=== PATIENT | male | born 1975 | race Caucasian/White ===

== ENCOUNTER 2017-03-28 00:29 | Emergency (ER) | payer OTHER ==
[2017-03-28 01:04] VITALS: BP 113/67; PULSE 66; TEMP 97.5; BMI 33.7
--- NOTE | 2017-03-28 01:36 | PDOC ---
History of Present Illness - General Chief Complaint: Pain, Acute Stated Complaint: ABD PAIN Time Seen by Provider: 03/28/17 00:58 History Source: Patient Exam Limitations: No Limitations - History of Present Illness Travel History: No Initial Comments: 03/28/17 01:47 42-year-old male with a history of renal colic presents to the emergency department with his daughter complaining of right sided flank pain radiating to the groin area 6 hours. 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 Patient denies any chest pain, shortness of breath, urinary symptoms: Frequency/urgency/hesitancy, hematuria, bladder or bowel dysfunction. Patient states symptoms feel similar to his renal colic. Timing/Duration: reports: intermittent Quality: reports: moderate Abdominal Pain Onset Location: reports: flank Past History - Past Medical History Allergies/Adverse Reactions: Allergies Allergy/AdvReac Type Severity Reaction Status Date / Time No Known Allergies Allergy Verified 03/28/17 02:05 Home Medications: Ambulatory Orders Hydrocodone/Acetaminophen [Vicodin Es 7.5-300 mg Tablet] 1 each PO TID #15 tablet MDD 3 03/28/17 Kidney Stones: Yes - Psycho/Social/Smoking Cessation Hx Suicidal Ideation: No Smoking History: Never smoked Review of Systems - Review of Systems Able to Perform ROS?: Yes Comments:: 03/28/17 01:54 CONSTITUTIONAL: Absent: fever, chills, diaphoresis, generalized weakness, malaise, loss of appetite HEENT: Absent: rhinorrhea, nasal congestion, throat pain, throat swelling, difficulty swallowing, mouth swelling, ear pain, eye pain, visual Changes CARDIOVASCULAR: Absent: chest pain, loss of consciousness, palpitations, irregular heart rate, peripheral edema RESPIRATORY: Absent: cough, shortness of breath, dyspnea with exertion, orthopnea, wheezing, stridor, hemoptysis GASTROINTESTINAL: Absent: abdominal pain, abdominal distension, nausea, vomiting, diarrhea, constipation, melena, hematochezia GENITOURINARY: +right flank pain Absent: dysuria, frequency, urgency, hesitancy, hematuria, , genital pain MUSCULOSKELETAL: Absent: myalgia, arthralgia, joint swelling SKIN: Absent: rash, itching, pallor HEMATOLOGIC/IMMUNOLOGIC: Absent: easy bleeding, easy bruising, lymphadenopathy, frequent infections ENDOCRINE: Absent: unexplained weight gain, unexplained weight loss, heat intolerance, cold intolerance NEUROLOGIC: Absent: headache, focal weakness or paresthesias, dizziness, unsteady gait, seizure, mental status changes, bladder or bowel incontinence PSYCHIATRIC: Absent: anxiety, depression, suicidal or homicidal ideation, hallucinations. Is the patient limited Nigerien proficient: No *Physical Exam - Vital Signs Last Vital Signs Temp Pulse Resp BP Pulse Ox 97.5 F L 66 22 113/67 100 03/28/17 01:02 03/28/17 01:02 03/28/17 01:02 03/28/17 01:02 03/28/17 01:02 - Physical Exam Comments: 03/28/17 01:54 GENERAL: Well developed, well nourished. Awake and alert. No acute distress. HEENT: Normocephalic, atraumatic. PERRLA, EOMI. No conjunctival pallor. Sclera are non- icteric. Moist mucous membranes. Oropharynx is clear. NECK: Supple. Full ROM. No JVD. Carotid pulses 2+ and symmetric, without bruits. No thyromegaly. No lymphadenopathy. CARDIOVASCULAR: Regular rate and rhythm. No murmurs, rubs, or gallops. Distal pulses are 2+ and symmetric. PULMONARY: No evidence of respiratory distress. Lungs clear to auscultation bilaterally. No wheezing, rales or rhonchi. ABDOMINAL: Soft. Non-tender. Non-distended. No rebound or guarding. No organomegaly. Normoactive bowel sounds. MUSCULOSKELETAL Normal range of motion at all joints. No bony deformities or tenderness. No CVA tenderness. EXTREMITIES: No cyanosis. No clubbing. No edema. No calf tenderness. SKIN: Warm and dry. Normal capillary refill. No rashes. No jaundice. NEUROLOGICAL: Alert, awake, appropriate. Cranial nerves 2-12 intact. No deficits to light touch and temperature in face, upper extremities and lower extremities. No motor deficits in the in face, upper extremities and lower extremities. Normoreflexic in the upper and lower extremities. Normal speech. Toes are down- going bilaterally. Gait is normal without ataxia. PSYCHIATRIC: Cooperative. Good eye contact. Appropriate mood and affect. ED Treatment Course - LABORATORY CBC & Chemistry Diagram: 03/28/17 01:38 03/28/17 01:38 - RADIOLOGY Radiograph Interpretation: 03/28/17 02:50 CAT scan abdomen and pelvis without contrast preliminary impression: No evidence of acute pathology Lung bases are clear. The visualized cardiac chambers are normal size and configuration. Normal enhanced liver, gallbladder, pancreas, spleen, adrenal glands and kidneys. The stomach and abdominal small and large bowels are normal. There is no aortic aneurysm. There is no significant retroperitoneal lymphadenopathy. Small fat containing umbilical hernia is noted. The pelvic small and large bowels are normal. The appendix is normal. The urinary bladder and prostate gland are normal. No pelvic free fluid is identified. There is no significant pelvic lymphadenopathy. 03/28/17 02:52 *DC/Admit/Observation/Transfer Diagnosis at time of Disposition: Umbilical hernia with obstruction Chronic low back pain Qualifiers: Back pain laterality: right Sciatica presence: without sciatica Qualified Code( s): M54.5 - Low back pain - Discharge Dispostion Disposition: HOME Condition at time of disposition: Stable Admit: No - Prescriptions Prescriptions: Hydrocodone/Acetaminophen [Vicodin Es 7.5-300 mg Tablet] 1 each PO TID #15 tablet MDD 3 - Referrals Referrals: Kirill Renteria MD [Staff Physician] - Ted Lozada MD [Primary Care Provider] - Jose M Calvillo MD [Staff Physician] - - Patient Instructions Printed Discharge Instructions: DI for Low Back Pain, Abdominal Hernia Additional Instructions: Please follow-up with the neurosurgeon listed on your discharge for your chronic low back pain. Follow up with DR. Calvillo/general surgeon for your umbilical hernia Tylenol/Motrin as needed for mild pain Tylenol No. 3 as needed for severe pain: Used sparingly. Return back to the emergency department for severe/persistent or worsening symptoms.
[2017-03-28] MEDS ORDERED: SODIUM CHLORIDE 1,000 ML IV STA (01:37)
[2017-03-28 01:51] LABS: BASOPHIL 0.4 % (0-2.0); EOSINOPHIL 1.5 % (0-4.5); MCHC 34.2 g/dl (32.0-35.9); MEAN CELL VOLUME 87.8 fl (80-96); MEAN PLT VOLUME 11.3 fl (7.5-11.1); NEUTROPHILS 60.8 % (42.8-82.8); PLATELET COUNT 121 K/MM3 (134-434); RDW 12.4 % (11.9-15.9); WHITE BLOOD COUNT 6.8 K/mm3 (4.0-10.0)
[2017-03-28 01:52] LABS: URINE APPEARANCE CLEAR; URINE BILIRUBIN NEGATIVE (NEGATIVE); URINE BLOOD NEGATIVE (NEGATIVE); URINE COLOR STRAW; URINE GLUCOSE (UA) NEGATIVE (NEGATIVE); URINE KETONE NEGATIVE (NEGATIVE); URINE LEUK ESTERASE NEGATIVE (NEGATIVE); URINE NITRITE NEGATIVE (NEGATIVE); URINE PROTEIN NEGATIVE (NEGATIVE); URINE UROBILINOGEN NEGATIVE E.U./dl (0.2-1.0)
[2017-03-28 02:17] LABS: ALBUMIN 3.7 g/dl (3.4-5.0); ALK PHOS 53 U/L (45-117); ANION GAP 8 (8-16); BILIRUBIN,TOTAL 0.3 mg/dL (0.2-1.0); CALCIUM 8.5 mg/dL (8.5-10.1); CO2 26 mmol/L (21-32); COCKROFT - GAULT 188.09; CREATININE 0.7 mg/dL (0.7-1.3); GLUCOSE,RANDOM 123 mg/dL (74-106); SGPT/ALT 41 U/L (12-78); TOT PROT 6.6 g/dl (6.4-8.2)
[2017-03-28 02:20] LABS: SGOT/AST 32 U/L (15-37)
== END 2017-03-28 03:06 | disposition home or self-care (01) ==
LOC: JER 00:29
PROC: 3E0337Z Introduction of Electrolytic and Water Balance Substance into Peripheral Vein, Percutaneous Approach (ICD-10-PCS; principal; 2017-03-28)
DX: K42.0 Umbilical hernia with obstruction, without gangrene (principal)
CPT/HCPCS: 36415; 74176; 80053; 81003; 85025; 96360; 99282-25

== ENCOUNTER 2020-06-12 22:29 | Inpatient (IN) | payer OTHER ==
[2020-06-12 22:46] VITALS: BMI 37.9
--- NOTE | 2020-06-12 22:54 | PDOC ---
History of Present Illness - General Chief Complaint: Pain, Acute Stated Complaint: BACK PAIN Time Seen by Provider: 06/12/20 22:53 History Source: Patient Exam Limitations: No Limitations - History of Present Illness Initial Comments: 06/12/20 22:55 45yM w PMHx morbid obesity, renal colic presenting w 1d persistent mild diffuse abd pain spreading to back, abd distension, nausea, dysuria. Took tylenol at 8pm w/o relief. Similar to previous renal stone presentation. Last BM today. Denies abd surgery. Denies fever, cough, chest pain, SOB, vomiting, constipation. Past History - Medical History Allergies/Adverse Reactions: Allergies Allergy/AdvReac Type Severity Reaction Status Date / Time No Known Allergies Allergy Verified 03/28/17 02:05 Home Medications: Ambulatory Orders Hydrocodone/Acetaminophen [Vicodin Es 7.5-300 mg Tablet] 1 each PO TID #15 tablet MDD 3 03/28/17 COPD: No Kidney Stones: Yes - Psycho-Social/Smoking History Smoking History: Never smoked - Substance Abuse Hx (Audit-C & DAST Scrn) How often the patient has a drink containing alcohol: Never Score: In Men: 4 or > Positive; In Women: 3 or > Positive: 0 Screen Result (Pos requires Nsg. Audit-10AR): Negative In the last yr the pt used illegal drug/Rx for NonMed reason: No Score: Yes response is considered Positive: 0 Screen Result (Positive result requires Nsg. DAST-10): Negative Review of Systems - Review of Systems Constitutional: No: Chills, Fever HEENTM: No: Eye Pain, Nose Congestion Respiratory: No: Cough, Shortness of Breath Cardiac (ROS): No: Chest Pain, Palpitations ABD/GI: Yes: Abdominal Distended, Nausea, Vomiting. No: Constipated, Diarrhea : No: Burning, Dysuria Musculoskeletal: No: Back Pain, Joint Pain Integumentary: No: Bruising, Flushing Neurological: No: Headache, Seizure Psychiatric: No: Anxiety, Depression Endocrine: No: Intolerance to Cold, Intolerance to Heat Hematologic/Lymphatic: No: Anemia, Blood Clots *Physical Exam - Vital Signs Last Vital Signs Temp Pulse Resp BP Pulse Ox 98.6 F 98 H 19 126/90 95 06/12/20 22:43 06/12/20 22:43 06/12/20 22:43 06/12/20 22:43 06/12/20 22:43 - Physical Exam General Appearance: Yes: Nourished, Appropriately Dressed, Mild Distress, Obese HEENT: positive: EOMI, GWYN, Normal Voice, Hearing Grossly Normal. negative: Scleral Icterus (R), Scleral Icterus (L) Respiratory/Chest: positive: Lungs Clear, Normal Breath Sounds. negative: Chest Tender, Respiratory Distress Cardiovascular: positive: Regular Rhythm, Regular Rate, S1, S2. negative: Edema, Murmur Gastrointestinal/Abdominal: positive: Tender (mild periumbilical, L flank), Soft, Distended. negative: Guarding, Rebound Musculoskeletal: positive: CVA Tenderness (L). negative: CVA Tenderness (R) Integumentary: positive: Normal Color, Warm Neurologic: positive: Fully Oriented, Alert, Normal Mood/Affect, Normal Response, Responsive ED Treatment Course - LABORATORY CBC & Chemistry Diagram: 06/12/20 23:35 06/12/20 23:35 Medical Decision Making - Medical Decision Making 06/12/20 23:10 CT A/P - mildly dilated jejunum and proximal ileum w air fluid levels representing ileus vs partial SBO, possible transition point, no diverticuli tis/colitis, fatty liver, very tiny R nonobstructing stone EKG - NSR, LAD, HR 72, QTc 405, no ST changes --- 45yM w PMHx morbid obesity, renal stones presenting w 1d persistent mild periumbilical, L flank to L CVA pain, abd distension, nausea, dysuria. Has partial SBO vs ileus per CT. No evidence of UTI (clean) vs obstructing stone. Vitals stable, pt feels better after meds given Given zofran, tylenol, 1L NS, made NPO. No need to place NG tube at this moment Admitted m/s hospitalist for partial SBO PCP Blanca Discharge - Discharge Information Problems reviewed: Yes Clinical Impression/Diagnosis: SBO (small bowel obstruction) Condition: Improved - Follow up/Referral Referrals: Elia Rios MD [Primary Care Provider] - - Patient Discharge Instructions - Post Discharge Activity
[2020-06-12] MEDS ORDERED: ONDANSETRON 4 MG/2 ML VIAL IVPUSH ONE (23:06)
[2020-06-12] MEDS ORDERED: ACETAMINOPHEN 1000 MG/100 ML VIAL (NON FORMULARY) IVPB ONE (23:06)
[2020-06-12 23:44] LABS: BASO % 0.2 % (0-2.0); EOS % 0.7 % (0-4.5); HEMATOCRIT 44.2 % (35.4-49); HEMOGLOBIN 15.3 GM/dL (11.7-16.9); LYMPH % 13.9 % (8-40); MCH 30.8 pg (25.7-33.7); MCHC 34.6 g/dl (32.0-35.9); MEAN PLT VOLUME 11.3 fl (7.5-11.1); MONO % 5.5 % (3.8-10.2); NEUT % 79.7 % (42.8-82.8); PH,URINE 5.5 (5.0-8.0); PLATELET COUNT 115 K/MM3 (134-434); RBC 4.97 M/mm3 (4.00-5.60); RDW 13.4 % (11.9-15.9); URINE APPEARANCE CLEAR; URINE BILIRUBIN NEGATIVE (NEGATIVE); URINE COLOR YELLOW; URINE GLUCOSE (UA) NEGATIVE (NEGATIVE); URINE KETONE NEGATIVE (NEGATIVE); URINE LEUK ESTERASE NEGATIVE (NEGATIVE); URINE NITRITE NEGATIVE (NEGATIVE); URINE PROTEIN NEGATIVE (NEGATIVE); WHITE BLOOD COUNT 6.7 K/mm3 (4.0-10.0)
[2020-06-13 00:34] LABS: ALBUMIN 3.5 g/dl (3.4-5.0); BILIRUBIN,TOTAL 0.5 mg/dL (0.2-1); BLOOD UREA NITROGEN 14.2 mg/dL (7-18); CALCIUM 8.8 mg/dL (8.5-10.1); CREATININE 0.9 mg/dL (0.55-1.3)
[2020-06-13] MEDS ORDERED: SODIUM CHLORIDE 0.9% 500 ML INFUS.BAG IV ONE (00:47)
[2020-06-13 01:00] LABS: TOT PROT 6.9 g/dl (6.4-8.2)
[2020-06-13 02:17] LABS: INR 1.16 (0.83-1.09); PROTHROMBIN TIME (PATIENT) 13.7 SEC (9.7-13.0)
[2020-06-13] MEDS ORDERED: ACETAMINOPHEN 1000 MG/100 ML VIAL (NON FORMULARY) IVPB ONE (02:33)
[2020-06-13] MEDS ORDERED: ACETAMINOPHEN INJECTION 100 ML IVPB ONE (02:36)
--- NOTE | 2020-06-13 02:38 | HP ---
CHIEF COMPLAINT:abdominal pain and nausea PCP:Dr. Eisenberg HISTORY OF PRESENT ILLNESS: 45 year old male with a past medical history of obesity and renal colic who presents to the ED with one day abdominal pain radiating to his back with associated nausea and dysuria. He reports he took tylenol at 8pm last evening with no relief, prompting his arrival to the ED. Patient endorses his present symptoms are similar to previous renal stone symptoms. He reports his last bowel movement was yesterday. He denied fever, cough , chills, shortness of breath or chest pain. He currently reports minimal abdominal pain. ER course notable for: Lab findings with WBC 6.5 and lactic acid 1.9. Urinalysis normal. CT scan of abdomen and pelvis 06/13/2020 FINDINGS: Negative for right or left urinary tract stone or obstruction. The jejunum and proximal ileum are mildly dilated with air-fluid levels. The mid to distal ileum is normal caliber. While it is possible that this represents an ileus, there are some features of partial or incomplete bowel obstruction and therefore if there are signs or symptoms of bowel obstruction, close follow-up is recommended. There may be a transition zone in a loop of bowel anteriorly to the right of midline (series 3 image 98/173). There appears to be a kink in this bowel. Loop. Adhesion? Negative for diverticulitis or colitis. Normal appendix. Enlarged fatty liver. Normal spleen. Normal pancreas. Normal adrenal glands. Contracted gallbladder. Osseous structures are intact. Small amount of calcified coronary artery plaque noted. Recent Travel: denies PAST MEDICAL HISTORY: renal colic PAST SURGICAL HISTORY: denies Social History: Smoking:no Alcohol:no Drugs: no Family History: noncontributory Allergies No Known Allergies Allergy (Verified 03/28/17 02:05) HOME MEDICATIONS: Home Medications Medication Instructions Recorded Hydrocodone/Acetaminophen [Vicodin 1 each PO TID #15 tablet MDD 3 03/28/17 Es 7.5-300 mg Tablet] REVIEW OF SYSTEMS CONSTITUTIONAL: Absent: fever, chills, diaphoresis, generalized weakness, malaise, loss of appetite, weight change HEENT: Absent: rhinorrhea, nasal congestion, throat pain, throat swelling, difficulty swallowing, mouth swelling, ear pain, eye pain, visual changes CARDIOVASCULAR: Absent: chest pain, syncope, palpitations, irregular heart rate, lightheadedness, peripheral edema RESPIRATORY: Absent: cough, shortness of breath, dyspnea with exertion, orthopnea, wheezing, stridor, hemoptysis GASTROINTESTINAL: Absent: abdominal pain, abdominal distension, nausea, vomiting, diarrhea, constipation, melena, hematochezia GENITOURINARY: Absent: dysuria, frequency, urgency, hesitancy, hematuria, flank pain, genital pain MUSCULOSKELETAL: Absent: myalgia, arthralgia, joint swelling, back pain, neck pain SKIN: Absent: rash, itching, pallor HEMATOLOGIC/IMMUNOLOGIC: Absent: easy bleeding, easy bruising, lymphadenopathy, frequent infections ENDOCRINE: Absent: unexplained weight gain, unexplained weight loss, heat intolerance, cold intolerance NEUROLOGIC: Absent: headache, focal weakness or paresthesias, dizziness, unsteady gait, seizure, mental status changes, bladder or bowel incontinence PSYCHIATRIC: Absent: anxiety, depression, suicidal or homicidal ideation, hallucinations. PHYSICAL EXAMINATION Vital Signs - 24 hr 06/12/20 22:43 Temperature 98.6 F Pulse Rate 98 H Respiratory 19 Rate Blood Pressure 126/90 O2 Sat by Pulse 95 Oximetry (%) General no acute distress Vital signs reviewed afebrile Neuro no focal deficits Neck no JVD Lungs CTA nonlabored breathing effort no rales no wheezing Heart s1s2 rate regular and normal Abdomen large and distended nontender on light palpation Extremities warm to touch no pitting edema no cyanosis Skin nail beds and lips pink Mood calm Laboratory Results - last 24 hr 06/12/20 06/12/20 06/12/20 23:35 23:35 23:35 WBC 6.7 RBC 4.97 Hgb 15.3 Hct 44.2 MCV 89.0 MCH 30.8 MCHC 34.6 RDW 13.4 Plt Count 115 L MPV 11.3 H Absolute Neuts (auto) 5.4 Neutrophils % 79.7 D Lymphocytes % 13.9 D Monocytes % 5.5 Eosinophils % 0.7 Basophils % 0.2 Nucleated RBC % 0 PT with INR INR Sodium 138 Potassium 4.0 Chloride 102 Carbon Dioxide 28 Anion Gap 8 BUN 14.2 Creatinine 0.9 Est GFR (CKD-EPI)AfAm 120.81 Est GFR (CKD-EPI)NonAf 104.24 Random Glucose 210 H Lactic Acid Calcium 8.8 Total Bilirubin 0.5 AST 27 ALT 55 Alkaline Phosphatase 97 Total Protein 6.9 Albumin 3.5 Lipase 66 L Urine Color Yellow Urine Appearance Clear Urine pH 5.5 Ur Specific [place] 1.020 Urine Protein Negative Urine Glucose (UA) Negative Urine Ketones Negative Urine Blood Negative Urine Nitrite Negative Urine Bilirubin Negative Urine Urobilinogen 1.0 Ur Leukocyte Esterase Negative 06/13/20 06/13/20 01:10 01:10 WBC RBC Hgb Hct MCV MCH MCHC RDW Plt Count MPV Absolute Neuts (auto) Neutrophils % Lymphocytes % Monocytes % Eosinophils % Basophils % Nucleated RBC % PT with INR 13.70 H INR 1.16 H Sodium Potassium Chloride Carbon Dioxide Anion Gap BUN Creatinine Est GFR (CKD-EPI)AfAm Est GFR (CKD-EPI)NonAf Random Glucose Lactic Acid 1.9 Calcium Total Bilirubin AST ALT Alkaline Phosphatase Total Protein Albumin Lipase Urine Color Urine Appearance Urine pH Ur Specific [place] Urine Protein Urine Glucose (UA) Urine Ketones Urine Blood Urine Nitrite Urine Bilirubin Urine Urobilinogen Ur Leukocyte Esterase ASSESSMENT/PLAN: In summary this is a 45 year old male with a medical history of obesity and renal colic who presents to the ED with oabdominal pain radiating to his back associated with nausea and dysuria for one day. CT can of abdomen and pelvis indicated there are some features of partial or incomplete bowel obstruction. He is being admitted for further medical evaluation and management. #1 Incomplete SBO currently with minimal abdominal pain NPO bedrest IVF NS@75cc/hr c/w pain meds with IV Ofirmev prn or IV morphine for severe pain prn consider NGT placement in am GI- Dr. Tolliver consulted Surgery- Dr. Tejas Robles consulted follow up on urine culture #2 Rule Out COVID follow up on COVID swab maintain strict isolation precautions for contact and droplet DVT Prophylaxis low risk SCD's FEN IVF NS@75cc/hr BMP daily, replete electrolytes as needed NPO Family Medical History Family History: Unremarkable Visit type - Emergency Visit Emergency Visit: Yes ED Registration Date: 06/13/20 Care time: The patient presented to the Emergency Department on the above date and was hospitalized for further evaluation of their emergent condition. - New Patient This patient is new to me today: Yes Date on this admission: 06/13/20 - Critical Care Critical Care patient: No
[2020-06-13] MEDS: SODIUM CHLORIDE 1,000 ML IV SCH ×2 (02:44→15:49)
[2020-06-13 08:21] LABS: HEMATOCRIT 40.4 % (35.4-49); HEMOGLOBIN 13.8 GM/dL (11.7-16.9); MCH 30.3 pg (25.7-33.7); MCHC 34.1 g/dl (32.0-35.9); MEAN CELL VOLUME 88.8 fl (80-96); MEAN PLT VOLUME 11.7 fl (7.5-11.1); PLATELET COUNT 106 K/MM3 (134-434); RBC 4.55 M/mm3 (4.00-5.60); RDW 13.3 % (11.9-15.9); WHITE BLOOD COUNT 5.1 K/mm3 (4.0-10.0)
[2020-06-13 08:41] LABS: BLOOD UREA NITROGEN 11.5 mg/dL (7-18); CALCIUM 8.2 mg/dL (8.5-10.1); CREATININE 0.7 mg/dL (0.55-1.3); POTASSIUM 3.9 mmol/L (3.5-5.1)
--- NOTE | 2020-06-13 08:58 | CON.GI ---
Consult Consult Specialty:: GI Referred by:: Hospitalist Service Reason for Consultation:: Abdomial pain - History of Present Illness Chief Complaint: Abdominal pain [id number] 45M admitted for evaluation of abdominal pain and bloating with radiation to the back. He states that the pain became intense lynette night after eating and seems to be precipitated after having meals. Similar sensation in the past but this was the most severe. Had a non-contrast CT scan of the A/P raising the possibility of a partial or evolving small bowel obstruction with transition zo ne (radiologist questioned an adhesion or kink in bowel".) No weight loss. No vomiting although he tends to get nauseous when this occurs. Last BM was sunday which he describes as scant. No rectal bleeding or melena. No family history of colorectal cancer or other GI malignancy. Has never had an EGD or colonoscopy. No prior surgeries. Had unremarkable CT scan 04/07. Pain persists. - History Source History Provided By: Patient Limitations to Obtaining History: No Limitations - Past Medical History Endocrine: Yes: Other (Obesity) - Past Surgical History Additional Surgical History: Denies - Alcohol/Substance Use Hx Alcohol Use: No History of Substance Use: reports: None - Smoking History Smoking history: Never smoked - Social History Usual Living Arrangement: With Spouse ADL: Independent Place of : Other ([facility]) Came to [place]year[place] 1992 History of Recent Travel: Yes ([facility] 12/11: uneventful) Home Medications - Allergies Allergies/Adverse Reactions: Allergies Allergy/AdvReac Type Severity Reaction Status Date / Time No Known Allergies Allergy Verified 03/28/17 02:05 - Home Medications Home Medications: Ambulatory Orders Hydrocodone/Acetaminophen [Vicodin Es 7.5-300 mg Tablet] 1 each PO TID #15 tablet MDD 3 03/28/17 Family Medical History Other Family History: Mother: : Diabetic complications. Father: : [place]. 4 sisters, 2 brothers: healthy. 2 daughtersm 1 son: healthy. No family history of colorectal cancer or other GI malignancy Review of Systems - Review of Systems Constitutional: denies: Chills, Fever Cardiovascular: denies: Chest Pain Respiratory: denies: Cough Gastrointestinal: reports: Abdominal Pain, Bloating, Constipation, Nausea. denies: Diarrhea, Melena, Rectal Bleeding, Vomiting, Vomiting Blood Physical Exam-GI Vital Signs: Vital Signs Temperature 98.4 F 06/13/20 05:01 Pulse Rate 66 06/13/20 05:01 Respiratory Rate 20 06/13/20 05:20 Blood Pressure 140/63 06/13/20 05:01 O2 Sat by Pulse Oximetry (%) 94 L 06/13/20 05:20 Constitutional: Yes: Calm Eyes: No: Sclera Icterus Cardiovascular: Yes: Regular Rate and Rhythm. No: Murmur Respiratory: Yes: CTA Bilaterally Gastrointestinal Inspection: Yes: Distention (protuberant abdomen). No: Scars ...Auscultate: Yes: Normoactive Bowel Sounds ...Palpate: Yes: Tenderness (TTP mid / left paramedian abdomen with voluntary guarding) ...Percussion: Yes: Tympanitic (mid abdomen) Edema: No (No LE edema) Neurological: Yes: Alert Labs: CBC, BMP 06/13/20 06:48 06/13/20 06:48 INR, PTT INR 1.16 (0.83-1.09) H 06/13/20 01:10 Imaging - Results Cat Scan: Report Reviewed, Image Reviewed Problem List - Problems (1) SBO (small bowel obstruction) Assessment/Plan: Concern for partial to evolving SBO. No prior surgeries. ? internal hernia / band / alternate pathology. Advise: NPO IV Hydration per PMD NGT Surgical evaluation Monitor Lytes Code(s): K56.609 - UNSP INTESTNL OBST, UNSP TO PARTIAL VERSUS COMPLETE OBST
--- NOTE | 2020-06-13 10:51 | CONSULT ---
Consult Referred by:: Surgery Reason for Consultation:: r/o SBO - History of Present Illness Chief Complaint: recurrent abdominal pain History of Present Illness: 45 year old male with a past medical history of obesity and renal colic who presents to the ED with one day abdominal pain radiating to his back with associated nausea and dysuria. Patient endorses his present symptoms are similar to previous renal stone symptoms. He reports his last bowel movement was yesterday. He denied fever, cough , chills, shortness of breath or chest pain. He currently reports to passing flatus and small bowel movement but has persistent LUQ pain and mild nausea. - History Source History Provided By: Patient Limitations to Obtaining History: No Limitations - Past Medical History Endocrine: Yes: Other (Obesity) - Past Surgical History Additional Surgical History: Denies - Alcohol/Substance Use Hx Alcohol Use: No History of Substance Use: reports: None - Smoking History Smoking history: Never smoked - Social History Usual Living Arrangement: With Spouse ADL: Independent History of Recent Travel: Yes ([facility] 12/11: uneventful) Home Medications - Allergies Allergies/Adverse Reactions: Allergies Allergy/AdvReac Type Severity Reaction Status Date / Time No Known Allergies Allergy Verified 03/28/17 02:05 - Home Medications Home Medications: Ambulatory Orders Hydrocodone/Acetaminophen [Vicodin Es 7.5-300 mg Tablet] 1 each PO TID #15 tablet MDD 3 03/28/17 Family Medical History Other Family History: Mother: : Diabetic complications. Father: : [place]. 4 sisters, 2 brothers: healthy. 2 daughtersm 1 son: healthy. No family history of colorectal cancer or other GI malignancy Review of Systems - Review of Systems Eyes: reports: No Symptoms HENT: reports: No Symptoms Neck: reports: No Symptoms Cardiovascular: reports: No Symptoms Respiratory: reports: No Symptoms Gastrointestinal: reports: Abdominal Pain (left sided more on LUQ), Nausea Genitourinary: reports: No Symptoms Musculoskeletal: reports: Back Pain (midback) Integumentary: reports: No Symptoms Neurological: reports: No Symptoms Psychiatric: reports: No Symptoms Physical Exam Vital Signs: Vital Signs Temperature 98.4 F 06/13/20 05:01 Pulse Rate 66 06/13/20 05:01 Respiratory Rate 20 06/13/20 05:20 Blood Pressure 140/63 06/13/20 05:01 O2 Sat by Pulse Oximetry (%) 94 L 06/13/20 05:20 Constitutional: Yes: Obese Eyes: Yes: Conjunctiva Clear HENT: Yes: Normocephalic Neck: Yes: Supple Cardiovascular: Yes: Regular Rate and Rhythm Respiratory: Yes: CTA Bilaterally Gastrointestinal: Yes: Soft, Abdomen, Obese, Distention (mild), Hernia (2 cm umbilical, reducible, non-tender), Tenderness (at LUQ, no rebound tenderness) ...Rectal Exam: Yes: Deferred Renal/: Yes: WNL Extremities: Yes: WNL Integumentary: Yes: WNL Neurological: Yes: Alert, Oriented Labs: CBC, BMP 06/13/20 06:48 06/13/20 06:48 Imaging - Results Cat Scan: Report Reviewed, Image Reviewed Problem List - Problems (1) SBO (small bowel obstruction) Assessment/Plan: Ileus vs. partial SBO NGT decompression bowel rest, IVF, and serial abdominal exams and X-rays Code(s): K56.609 - UNSP INTESTNL OBST, UNSP TO PARTIAL VERSUS COMPLETE OBST
--- NOTE | 2020-06-13 13:27 | PN ---
Progress Note (short form) - Note Progress Note: EVENTS AND NOTES REVIEWED PATIENT WITH SBO NGT FOR DECOMPRESSION NPO DVT PROPHYLAXIS SURGERY AND GI EVAL CHECK LABS
[2020-06-13] MEDS: MORPHINE SULFATE 2 MG/ML VIAL IVPUSH PRN (18:17)
--- NOTE | 2020-06-13 21:07 | PDOC ---
Documentation entered by Cheryl Middleton SCRIBE, acting as scribe for Leonor Swenson MD. Leonor Swenson MD: This documentation has been prepared by the bradeneKane Sydney, SCRIBE, under my direction and personally reviewed by me in its entirety. I confirm that the documentation accurately reflects all work, treatment, procedures, and medical decision making performed by me. Attending Attestation - Resident Resident Name: Jovanni Hooper - ED Attending Attestation I have performed the following: I have examined & evaluated the patient, The case was reviewed & discussed with the resident, I agree w/resident's findings & plan, Exceptions are as noted - HPI HPI: 06/12/20 23:33 Patient is a 45 year old male with a significant past medical history of obesity, renal colic who presents to the ED with one day abdominal pain radiating to his back with associated nausea and dysuria. As per patient, he took tylenol at 8pm this evening with no relief, prompting his arrival to the ED. Patient endorses his present symptoms are similar to previous renal stone symptoms. Denies fever, chills, headache, chest pain, shortness of breath, diarrhea, constipation, or urinary changes. Allergies: NKDA PCP: Dr. Rios - Physicial Exam PE: 06/13/20 21:07 agree with resident exam - Medical Decision Making 06/13/20 00:48 Pt has low abd pain and now with a low grade partial SBO. 06/13/20 00:50 Patient Name: LATRICE CHILEL THIS IS A PRELIMINARY REPORT DATE OF SERVICE: 2020-06-13 00:01:13 IMAGES: [id number] EXAM: ABDOMEN \T\ PELVIS CT W/O CONTR HISTORY: Rule out stone COMPARISON: None. FINDINGS: Negative for right or left urinary tract stone or obstruction. The jejunum and proximal ileum are mildly dilated with air-fluid levels. The mid to distal ileum is normal caliber. While it is possible that this represents an ileus, there are some features of partial or incomplete bowel obstruction and therefore if there are signs or symptoms of bowel obstruction, close follow-up is recommended. There may be a transition zone in a loop of bowel anteriorly to the right of midline (series 3 image [id number]). There appears to be a kink in this bowel. Loop. Adhesion? Negative for diverticulitis or colitis. Normal appendix. Enlarged fatty liver. Normal spleen. Normal pancreas. Normal adrenal glands. Contracted gallbladder. Osseous structures are intact. Small amount of calcified coronary artery plaque noted. Discharge - Discharge Information Problems reviewed: Yes Clinical Impression/Diagnosis: SBO (small bowel obstruction) Condition: Improved - Follow up/Referral - Patient Discharge Instructions - Post Discharge Activity
[2020-06-14] MEDS: MORPHINE SULFATE 2 MG/ML VIAL IVPUSH PRN (00:28)
[2020-06-14] MEDS: SODIUM CHLORIDE 1,000 ML IV SCH (05:18)
[2020-06-14] MEDS ORDERED: ACETAMINOPHEN 1000 MG/100 ML VIAL (NON FORMULARY) IVPB PRN (07:46)
--- NOTE | 2020-06-14 08:35 | PN ---
Progress Note, Physician - Current Medication List Current Medications: Active Medications Acetaminophen (Ofirmev Injection -) 1,000 mg IVPB Q6H PRN PRN Reason: PAIN LEVEL 6-10 Stop: 06/15/20 07:47 Sodium Chloride (Normal Saline -) 1,000 mls @ 75 mls/hr IV ASDIR [facility] Last Admin: 06/14/20 05:18 Dose: 75 mls/hr Documented by: Pantoprazole Sodium (Protonix Iv) 40 mg IVPUSH BID [facility] - Objective Vital Signs: Vital Signs Temperature 99 F 06/14/20 05:14 Pulse Rate 82 06/14/20 05:14 Respiratory Rate 18 06/14/20 05:14 Blood Pressure 136/85 06/14/20 05:14 O2 Sat by Pulse Oximetry (%) 94 L 06/14/20 05:14 Cardiovascular: Yes: S1, S2 Respiratory: Yes: Regular, CTA Bilaterally Gastrointestinal: Yes: Distention, Hypoactive Bowel Sounds Labs: CBC, BMP 06/13/20 06:48 06/13/20 06:48 INR, PTT INR 1.16 (0.83-1.09) H 06/13/20 01:10 Problem List - Problems (1) SBO (small bowel obstruction) Assessment/Plan: npo ivf gi and suregry on board follow labs fua Code(s): K56.609 - UNSP INTESTNL OBST, UNSP TO PARTIAL VERSUS COMPLETE OBST
[2020-06-14 08:56] LABS: HEMATOCRIT 41.9 % (35.4-49); HEMOGLOBIN 14.3 GM/dL (11.7-16.9); MCH 30.3 pg (25.7-33.7); MCHC 34.2 g/dl (32.0-35.9); MEAN CELL VOLUME 88.6 fl (80-96); MEAN PLT VOLUME 11.4 fl (7.5-11.1); PLATELET COUNT 117 K/MM3 (134-434); RBC 4.73 M/mm3 (4.00-5.60); RDW 13.3 % (11.9-15.9); WHITE BLOOD COUNT 6.7 K/mm3 (4.0-10.0)
--- NOTE | 2020-06-14 09:19 | PN ---
Progress Note, Physician Chief Complaint: abdominal pain History of Present Illness: Patient has less pain and continues to pass flatus but no BM. Ng drainage noted to be coffee ground (700 ml) - Current Medication List Current Medications: Active Medications Acetaminophen (Ofirmev Injection -) 1,000 mg IVPB Q6H PRN PRN Reason: PAIN LEVEL 6-10 Stop: 06/15/20 07:47 Sodium Chloride (Normal Saline -) 1,000 mls @ 75 mls/hr IV ASDIR [facility] Last Admin: 06/14/20 05:18 Dose: 75 mls/hr Documented by: Pantoprazole Sodium (Protonix Iv) 40 mg IVPUSH BID [facility] - Objective Vital Signs: Vital Signs Temperature 99 F 06/14/20 05:14 Pulse Rate 82 06/14/20 05:14 Respiratory Rate 18 06/14/20 05:14 Blood Pressure 136/85 06/14/20 05:14 O2 Sat by Pulse Oximetry (%) 94 L 06/14/20 05:14 Constitutional: Yes: No Distress Gastrointestinal: Yes: Soft, Abdomen, Obese, Tenderness (persistent deep LUQ tenderness but no rebound) Labs: CBC, BMP 06/14/20 08:22 INR, PTT INR 1.16 (0.83-1.09) H 06/13/20 01:10 - ....Imaging X-ray: Report Reviewed, Image Reviewed (mildly dilated loops of proximal SB with air in colon) Problem List - Problems (1) SBO (small bowel obstruction) Assessment/Plan: f/u FUA today continue NG decompression CT A/P w/ contrast today re: patient has persistent tenderness and mild bowel distention Code(s): K56.609 - UNSP INTESTNL OBST, UNSP TO PARTIAL VERSUS COMPLETE OBST
[2020-06-14 09:27] LABS: ALBUMIN 3.2 g/dl (3.4-5.0); BILIRUBIN,TOTAL 0.8 mg/dL (0.2-1); BLOOD UREA NITROGEN 14.8 mg/dL (7-18); CALCIUM 8.5 mg/dL (8.5-10.1); CREATININE 0.7 mg/dL (0.55-1.3); MAGNESIUM 2.1 mg/dL (1.8-2.4); POTASSIUM 3.7 mmol/L (3.5-5.1); TOT PROT 6.4 g/dl (6.4-8.2)
[2020-06-14] MEDS: PANTOPRAZOLE SODIUM 40 MG VIAL IVPUSH SCH ×2 (10:20→22:53)
[2020-06-14] MEDS ORDERED: PT OWN MED DRAWER 7, Y5N ONE ×2 (14:03→19:08)
[2020-06-14] MEDS: BENZOCAINE/MENTH/CETYLPYRD CL 1 EACH LOZENGE MM PRN ×2 (15:49→22:54)
[2020-06-14] MEDS ORDERED: SODIUM CHLORIDE 1,000 ML IV SCH (16:18)
--- NOTE | 2020-06-14 18:26 | EKG ---
Test Reason : Blood Pressure : / mmHG Vent. Rate : 072 BPM Atrial Rate : 072 BPM P-R Int : 164 ms QRS Dur : 098 ms QT Int : 370 ms P-R-T Axes : 031 -42 -13 degrees QTc Int : 405 ms NORMAL SINUS RHYTHM LEFT AXIS DEVIATION INFERIOR INFARCT , AGE UNDETERMINED ABNORMAL ECG NO PREVIOUS ECGS AVAILABLE Confirmed by MAI MARSH MD ([id number]) on 06/14/2020 6:26:28 PM Referred By: Confirmed By:MAI MARSH MD
[2020-06-15] MEDS: D5-NS + 40 MEQ KCL - 40 MEQ/1,000 ML INFUS.BAG IV SCH ×2 (00:33→12:00)
[2020-06-15 08:30] LABS: BLOOD UREA NITROGEN 13.4 mg/dL (7-18); CALCIUM 8.2 mg/dL (8.5-10.1); CREATININE 0.7 mg/dL (0.55-1.3); POTASSIUM 3.9 mmol/L (3.5-5.1)
[2020-06-15] MEDS: PANTOPRAZOLE SODIUM 40 MG VIAL IVPUSH SCH ×2 (10:17→23:39)
[2020-06-15] MEDS ORDERED: PT OWN MED DRAWER 7, Y5N ONE ×2 (10:22→16:11)
[2020-06-15] MEDS: BENZOCAINE/MENTH/CETYLPYRD CL 1 EACH LOZENGE MM PRN ×3 (10:25→23:40)
[2020-06-15] MEDS ORDERED: ACETAMINOPHEN 1000 MG/100 ML VIAL (NON FORMULARY) IVPB PRN (10:46)
--- NOTE | 2020-06-15 10:49 | PN ---
Progress Note, Physician Chief Complaint: Small bowel obstruction History of Present Illness: NAD Self ambulatory NGT clamped Denies any N/V/abd pain - Current Medication List Current Medications: Active Medications Benzocaine/Menthol (Cepacol Lozenge -) 1 each MM Q6H PRN PRN Reason: SORE THROAT Last Admin: 06/15/20 10:25 Dose: 1 each Documented by: Dextrose/Sodium Chloride (Dextrose 5%-Normal Saline+40 Meq Kcl -) 40 meq in 1,000 mls @ 100 mls/hr IV ASDIR [facility] Last Admin: 06/15/20 00:33 Dose: 100 mls/hr Documented by: Pantoprazole Sodium (Protonix Iv) 40 mg IVPUSH BID [facility] Last Admin: 06/15/20 10:17 Dose: 40 mg Documented by: - Objective Vital Signs: Vital Signs Temperature 99.9 F H 06/15/20 05:50 Pulse Rate 91 H 06/15/20 05:50 Respiratory Rate 18 06/15/20 05:50 Blood Pressure 144/71 06/15/20 05:50 O2 Sat by Pulse Oximetry (%) 93 L 06/15/20 05:50 Constitutional: Yes: Well Nourished, No Distress, Calm, Obese Cardiovascular: Yes: Regular Rate and Rhythm Respiratory: Yes: Regular, CTA Bilaterally Gastrointestinal: Yes: Normal Bowel Sounds, Soft Genitourinary: Yes: WNL Musculoskeletal: Yes: WNL Extremities: Yes: WNL Edema: No Peripheral Pulses WNL: Yes Neurological: Yes: Alert, Oriented Psychiatric: Yes: Alert, Oriented Labs: CBC, BMP 06/14/20 08:22 06/15/20 07:42 INR, PTT INR 1.16 (0.83-1.09) H 06/13/20 01:10 Problem List - Problems (1) SBO (small bowel obstruction) Assessment/Plan: -Surgical consult appreciated -GI on board -CTAP w/ contrast reviewed- thickened bowel -D/C NGT -Trial of clears -IVF -Serial AXR Problems reviewed: Yes Code(s): K56.609 - UNSP INTESTNL OBST, UNSP TO PARTIAL VERSUS COMPLETE OBST Assessment/Plan See problem list
--- NOTE | 2020-06-15 14:50 | PN.GI ---
GI Progress Note Subjective: Patient feeling better NGT has been clamped, no BM, + flatus Thickened small bowel loop noted on repeat CT scan - Objective Vital Signs: Vital Signs Temperature 98.6 F 06/15/20 13:10 Pulse Rate 74 06/15/20 13:10 Respiratory Rate 18 06/15/20 13:10 Blood Pressure 132/65 06/15/20 13:10 O2 Sat by Pulse Oximetry (%) 96 06/15/20 11:00 Constitutional: Calm Eyes: No: Sclera Icterus Cardiovascular: Yes: Regular Rate and Rhythm Respiratory: Yes: CTA Bilaterally Gastrointestinal Inspection: No: Distention ...Auscultate: Yes: Normoactive Bowel Sounds ...Palpate: Yes: Soft. No: Hepatomegaly, Splenomegaly, Tenderness Edema: No (No LE edema) Labs: CBC, BMP 06/14/20 08:22 06/15/20 07:42 INR, PTT INR 1.16 (0.83-1.09) H 06/13/20 01:10 Hepatic Panel Total Bilirubin 0.8 mg/dL (0.2-1) 06/14/20 08:22 AST 13 U/L (15-37) L 06/14/20 08:22 ALT 40 U/L (13-61) 06/14/20 08:22 Alkaline Phosphatase 83 U/L (45-117) 06/14/20 08:22 Albumin 3.2 g/dl (3.4-5.0) L 06/14/20 08:22 Problem List - Problems (1) SBO (small bowel obstruction) Assessment/Plan: Clinically improved ? thickened bowel loop Ordered CT enterography to evaluate further Surgery following Code(s): K56.609 - UNSP INTESTNL OBST, UNSP TO PARTIAL VERSUS COMPLETE OBST
--- NOTE | 2020-06-15 18:32 | PN ---
Progress Note, Physician Chief Complaint: abdominal pain History of Present Illness: No longer with abdominal pain NGT clamped and subsequently removed Tolerating clear liquids Had flatus and BM today. Awaiting report of CT enterography - Current Medication List Current Medications: Active Medications Acetaminophen (Ofirmev Injection -) 1,000 mg IVPB Q6H PRN PRN Reason: PAIN Stop: 06/16/20 10:46 Benzocaine/Menthol (Cepacol Lozenge -) 1 each MM Q6H PRN PRN Reason: SORE THROAT Last Admin: 06/15/20 16:26 Dose: 1 each Documented by: Dextrose/Sodium Chloride (Dextrose 5%-Normal Saline+40 Meq Kcl -) 40 meq in 1,000 mls @ 100 mls/hr IV ASDIR [facility] Last Admin: 06/15/20 12:00 Dose: 100 mls/hr Documented by: Pantoprazole Sodium (Protonix Iv) 40 mg IVPUSH BID [facility] Last Admin: 06/15/20 10:17 Dose: 40 mg Documented by: - Objective Vital Signs: Vital Signs Temperature 98.6 F 06/15/20 13:10 Pulse Rate 74 06/15/20 13:10 Respiratory Rate 18 06/15/20 13:10 Blood Pressure 132/65 06/15/20 13:10 O2 Sat by Pulse Oximetry (%) 96 06/15/20 11:00 Constitutional: Yes: No Distress Neck: Yes: Supple Cardiovascular: Yes: Regular Rate and Rhythm Respiratory: Yes: CTA Bilaterally Gastrointestinal: Yes: Soft, Abdomen, Obese, Tenderness (no longer present at LUQ) ...Rectal Exam: Yes: Deferred Labs: CBC, BMP 06/14/20 08:22 06/15/20 07:42 INR, PTT INR 1.16 (0.83-1.09) H 06/13/20 01:10 - ....Imaging Cat Scan: Report Reviewed (acute enteritis, less likely neoplastic process), Image Reviewed Problem List - Problems (1) SBO (small bowel obstruction) Assessment/Plan: Advance JANELL f/u CT enterography report D/C planning if above is unremarkable f/u at office in one week Code(s): K56.609 - UNSP INTESTNL OBST, UNSP TO PARTIAL VERSUS COMPLETE OBST
[2020-06-16] MEDS: D5-NS + 40 MEQ KCL - 40 MEQ/1,000 ML INFUS.BAG IV SCH (00:45)
--- NOTE | 2020-06-16 07:06 | PN.GI ---
GI Progress Note Subjective: NO NEW COMPLAINTS - DOING OKAY TODAY - NO N/V / ABD PAIN - Objective Vital Signs: Vital Signs Temperature 99.3 F 06/16/20 03:46 Pulse Rate 69 06/16/20 03:46 Respiratory Rate 18 06/16/20 03:46 Blood Pressure 130/63 06/16/20 03:46 O2 Sat by Pulse Oximetry (%) 95 06/16/20 03:46 Constitutional: Well Nourished, No Distress Neck: Yes: WNL Cardiovascular: Yes: WNL Respiratory: Yes: WNL, Regular, CTA Bilaterally Gastrointestinal Inspection: Yes: WNL ...Auscultate: Yes: Normoactive Bowel Sounds Extremities: Yes: WNL Edema: No Labs: CBC, BMP 06/14/20 08:22 06/15/20 07:42 INR, PTT INR 1.16 (0.83-1.09) H 06/13/20 01:10 Problem List - Problems (1) SBO (small bowel obstruction) Assessment/Plan: -- CT ENTEROGRAPHY WITHOUT EVIDENCE OF THICKENED SMALL BOWEL LOOP -- SOFT DIET -- OOB TO CHAIR Code(s): K56.609 - UNSP INTESTNL OBST, UNSP TO PARTIAL VERSUS COMPLETE OBST
--- NOTE | 2020-06-16 09:24 | PN ---
Progress Note, Physician Chief Complaint: Small bowel obstruction History of Present Illness: NAD Self ambulatory NGT discontinued Tolerating clear liquid diet Denies any N/V/abd pain - Current Medication List Current Medications: Active Medications Acetaminophen (Ofirmev Injection -) 1,000 mg IVPB Q6H PRN PRN Reason: PAIN Stop: 06/16/20 10:46 Benzocaine/Menthol (Cepacol Lozenge -) 1 each MM Q6H PRN PRN Reason: SORE THROAT Last Admin: 06/15/20 23:40 Dose: 1 each Documented by: Dextrose/Sodium Chloride (Dextrose 5%-Normal Saline+40 Meq Kcl -) 40 meq in 1,000 mls @ 100 mls/hr IV ASDIR [facility] Last Admin: 06/16/20 00:45 Dose: 100 mls/hr Documented by: Pantoprazole Sodium (Protonix Iv) 40 mg IVPUSH BID [facility] Last Admin: 06/15/20 23:39 Dose: 40 mg Documented by: - Objective Vital Signs: Vital Signs Temperature 99.3 F 06/16/20 06:00 Pulse Rate 69 06/16/20 06:00 Respiratory Rate 18 06/16/20 06:00 Blood Pressure 130/63 06/16/20 06:00 O2 Sat by Pulse Oximetry (%) 95 06/16/20 06:00 Constitutional: Yes: Well Nourished, No Distress, Calm, Obese Cardiovascular: Yes: Regular Rate and Rhythm Respiratory: Yes: Regular, CTA Bilaterally Gastrointestinal: Yes: Normal Bowel Sounds, Soft, Abdomen, Obese Genitourinary: Yes: WNL Musculoskeletal: Yes: WNL Extremities: Yes: WNL Edema: No Peripheral Pulses WNL: Yes Neurological: Yes: Alert, Oriented Psychiatric: Yes: Alert, Oriented Labs: CBC, BMP 06/14/20 08:22 INR, PTT INR 1.16 (0.83-1.09) H 06/13/20 01:10 Problem List - Problems (1) SBO (small bowel obstruction) Assessment/Plan: -Surgical consult appreciated -GI on board -CTAP w/ contrast reviewed- thickened bowel -Advance diet to soft -D/C IVF -CT enterography-normal -Continue PPI Problems reviewed: Yes Code(s): K56.609 - UNSP INTESTNL OBST, UNSP TO PARTIAL VERSUS COMPLETE OBST (2) Diabetes Assessment/Plan: -A1c at 6.6 -Start metformin 500 mg po daily -Encouraged weight loss Problems reviewed: Yes Code(s): E11.9 - TYPE 2 DIABETES MELLITUS WITHOUT COMPLICATIONS Assessment/Plan See problem list Spoke to daughter over the phone
[2020-06-16 10:02] LABS: ALBUMIN 3.4 g/dl (3.4-5.0); BILIRUBIN,TOTAL 0.6 mg/dL (0.2-1); BLOOD UREA NITROGEN 11.2 mg/dL (7-18); CALCIUM 8.5 mg/dL (8.5-10.1); CREATININE 0.7 mg/dL (0.55-1.3); POTASSIUM 4.2 mmol/L (3.5-5.1)
[2020-06-16] MEDS: PANTOPRAZOLE SODIUM 40 MG VIAL IVPUSH SCH (10:16)
[2020-06-16 15:01] VITALS: BP 122/72; PULSE 72; TEMP 98.7
== END 2020-06-16 16:53 | disposition home or self-care (01) | DRG 247 ==
LOC: JER 22:29 → JERBED 06-13 00:49 → J6S 06-13 04:39
PROVIDERS: ADMIT Internal Medicine; ATTEND Family Medicine
PROC: 0D9670Z Drainage of Stomach with Drainage Device, Via Natural or Artificial Opening (ICD-10-PCS; principal; 2020-06-13)
DX: K56.609 Unspecified intestinal obstruction, unspecified as to partial versus complete obstruction (principal); E66.01 Morbid (severe) obesity due to excess calories; E11.9 Type 2 diabetes mellitus without complications; Z68.37 Body mass index [BMI] 37.0-37.9, adult
CPT/HCPCS: 36415; 71046-TC-FY; 74019-TC-FY; 74176-TC; 74177-TC; 80048; 80053; 81003; 83036; 83605; 83690; 83735; 85025; 85027; 85610; 86850; 86900; 86901; 87086; 93005; 93010; 99285-25; J0131; Q9967; U0003